=== PATIENT | male | born 2000 | race Caucasian/White ===

== ENCOUNTER 2020-06-04 21:46 | Emergency (ER) | payer MEDICAID ==
[~2020-06-04] VITALS: Ht 175.3 cm; Wt 173.5 kg
[2020-06-04] MEDS ORDERED: HYDROCODONE/ACETAMINOPHEN 5/325MG TABLET PO STA (23:37)
[2020-06-05 00:53] VITALS: BP 143/76
[2020-06-05] MEDS ORDERED: ACETAMINOPHEN 325MG TABLET PO STA (01:04)
[2020-06-05] MEDS ORDERED: ONDANSETRON 4MG ODT PO STA (01:58)
[2020-06-05] MEDS ORDERED: IBUP-2029 MT (02:07)
[2020-06-05] MEDS ORDERED: CYCL5TAB MT (02:07)
== END 2020-06-05 02:40 | disposition home or self-care (01) ==
LOC: ER 21:46
DX: S00.83XA Contusion of other part of head, initial encounter (principal); V49.49XA Driver injured in collision with other motor vehicles in traffic accident, initial encounter; Y93.89 Activity, other specified; Y92.89 Other specified places as the place of occurrence of the external cause; Y99.8 Other external cause status; M25.512 Pain in left shoulder; M25.562 Pain in left knee; M79.604 Pain in right leg; Z98.890 Other specified postprocedural states
CPT/HCPCS: 70450; 70486; 73030; 73562; 73590; 99285; Q0162